=== PATIENT | male | born 1985 ===

== ENCOUNTER 2019-01-17 18:57 | Emergency (ER) | payer OTHER ==
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
== END 2019-01-17 20:05 | disposition home or self-care (01) ==
LOC: MW.ED 18:57
DX: Z04.89 Encounter for examination and observation for other specified reasons (principal)
CPT/HCPCS: 80305-QW; 99283

== ENCOUNTER 2019-11-17 00:07 | Emergency (ER) | payer BC, OTHER ==
[2019-11-17] MEDS ORDERED: Ketorolac 60 MG/2 ML SDV IM ONE (00:40)
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
== END 2019-11-17 01:25 | disposition home or self-care (01) ==
LOC: MW.ED 00:07
DX: N50.812 Left testicular pain (principal); Z87.891 Personal history of nicotine dependence
CPT/HCPCS: 81001; 96372; 99284; J1885; 99283